=== PATIENT | male | born 1965 | race Caucasian/White ===

== ENCOUNTER → 2018-01-31 20:00 | Outpatient (CLI) | payer OTHER, SELFPAY | PROVIDERS: Family Provider Internal Medicine; PCP Internal Medicine; Visit Provider Clinical Nurse Specialist | DX: G47.10 Hypersomnia, unspecified (principal); R06.81 Apnea, not elsewhere classified; R06.83 Snoring | CPT/HCPCS: 95810 ==

== ENCOUNTER → 2018-03-10 23:38 | Outpatient (CLI) | payer OTHER, SELFPAY | PROVIDERS: Family Provider Internal Medicine; PCP Internal Medicine; Visit Provider Clinical Nurse Specialist | DX: G47.33 Obstructive sleep apnea (adult) (pediatric) (principal) | CPT/HCPCS: 95811 ==

== ENCOUNTER → 2019-01-09 08:06 | Outpatient (CLI) | payer OTHER, SELFPAY ==
[2018-07-13 08:41] VITALS: BMI 27.1
[2019-01-09 09:45] LABS: Vitamin B12 334 pg/mL (211-911); Vitamin D,25 Hydroxy 17.1 ng/mL (29.95-100.01)
[2019-01-09 09:49] LABS: Thyroid Stim Hormone (TSH) 1.88 uIU/mL (0.358-3.74)
== END ==
PROVIDERS: Family Provider Internal Medicine; PCP Internal Medicine
DX: E55.9 Vitamin D deficiency, unspecified (principal); E53.9 Vitamin B deficiency, unspecified; R53.82 Chronic fatigue, unspecified
CPT/HCPCS: 36415; 82306; 82607; 84443

== ENCOUNTER → 2019-03-18 16:57 | Outpatient (CLI) | payer OTHER, SELFPAY ==
[2019-01-16 07:13] VITALS: BMI 26.5
--- NOTE | 2019-03-18 17:15 | RAD_ITS ---
STUDY: X-RAY - LEFT KNEE REASON FOR EXAM: Male, 53 years old. Left knee pain TECHNIQUE: 2 view(s) of the knee. Weight-bearing COMPARISON: None. FINDINGS: Normal visualized distal femur. Normal visualized proximal tibia and fibula. Normal proximal tibiofibular articulation. Normal medial femorotibial compartment. Normal lateral femorotibial compartment. Normal patellofemoral articulation. The soft tissue structures are unremarkable. RAD/Knee 1 or 2 Views IMPRESSION: Normal x-ray examination of the knee. Electronically Signed: Andrew Allen DO at 14:30 EDT Tel , Service support ,
== END ==
PROVIDERS: Family Provider Internal Medicine; PCP Internal Medicine; Referring Provider Internal Medicine; Visit Provider Internal Medicine
DX: M71.22 Synovial cyst of popliteal space [Baker], left knee (principal)
CPT/HCPCS: 73560

== ENCOUNTER → 2019-09-21 07:39 | Outpatient (CLI) | payer OTHER, SELFPAY ==
[2019-04-08 07:09] VITALS: BMI 26.5
--- NOTE | 2019-09-21 07:40 | VDLE_ITS ---
Reason For Study: LLE calf pain RIGHT LEFT CFV is compressible, spontaneous, phasic, GSV is normal. competent and demonstrates normal CFV is compressible, spontaneous, phasic, augmentation. competent, and demonstrates normal Procedure augmentation. Exam performed in department. FV is compressible, spontaneous, phasic, The exam was diagnostic. competent and demonstrates normal A preliminary report was called and/or faxed augmentation. to Dr. Romulo Calvert @ 8:25 am @ POP V is compressible, spontaneous, phasic, . competent and demonstrates normal augmentation. T/P Trunk is compressible. PTV is compressible. LT PerV is compressible. Interpretation Summary There is no evidence of left lower extremity deep vein thrombosis. Left great saphenous vein appears patent and compressible segmentally. Normal flow patterns right common femoral vein Ordering Physician: Romulo Calvert Referring Physician: Romulo Calvert Performed By: Kayla Moy, TREVOR, RVT
== END ==
PROVIDERS: Family Provider Internal Medicine; PCP Internal Medicine; Referring Provider Internal Medicine; Visit Provider Internal Medicine
DX: M79.662 Pain in left lower leg (principal)
CPT/HCPCS: 93971

== ENCOUNTER 2019-11-25 16:00 | Outpatient (RCR) | payer OTHER, SELFPAY ==
[2019-10-12 15:35] VITALS: BMI 26.5
--- NOTE | 2019-10-22 16:54 | HP.PTEVAL_ITS ---
Patient's Visit Information FATOUMATA GÓMEZ is a 54 year old M referred to Physical Therapy by ZANDRA Lange with a diagnosis of Recurrent Calf Strain. Date of Evaluation: 10/22/19 Physical Therapist: Peggy Orr DPT - Visit Plan Frequency: 2x /Week Duration: 4 Weeks Plan: Focus on LE and core strength/stabilization- agility and sports specific- DN as modality - Subjective Findings: Competitive Tennis- insidious onset- happened in May- takes time off until he can't feel it anymore. then 1-3 weeks later it happens again- has happened 6-7x since the initial injury. Pain in the left side but is now kind in the left side. 16 days since the last time he re-injured it- has not played since. Normally takes 1-2 weeks depends on how it feels. Describes as sharp shooting- this time he was limping at work- but the last one was one of the worst times. Has had an ultrasound which was negative for blood clots. No x-ray or MRI. Pain is located in the calf- right below the bulb but it can be throughout the whole calf. Has had bruising on the inside of the foot. Has had swelling the calf. Worst: 7/10 Best: 0/10. Agg: playing tennis. Tennis shoes-in May- new type of shoe. Tennis 2-3x a week- both singles and doubles- no other exercise- does not really stretch. If he does stretch the pain bouts are longer. MD sent him to therapy- feels he needs some therapy then possible MRI. Does not plan to quit playing tennis. Sleep: not disturbed. 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 PMHx:none Meds: claratin, probiotic, Meloxicam - Objective Posture: FH, RS, can correct but does not maintain. Gait: no deviation noted. Observation: high arches bilaterally- under developed calf muscle. Hr/TR able without pain both eccentric and concentric. SLS: 30 sec with increased muscle activation and hip drop bilaterally. ROM: WFL in all planes of LE. Strength: Ankle: 5/5, Knee: Flex: 4/5, Extn: 4+/5, Hip: abd/flexion: 4/5, ER: 4-/5, IR: 4+/5, Core: fair minus. Flex: Hamstring: severe, Gastroc: severe, Soleus: moderate. Special Test: LLD: negative, Pelvis Alignment: WFL - Goals Goal 1:: Patient will be I with HEP and progression Goal Time Frame: 4-6 Weeks Goal 2:: Patient will not be tender to palpation in bilateral calf muscles Goal Time Frame: 4-6 Weeks Goal 3:: Patient will maintain proper posture t/o tx session to demo increased core s/s Goal Time Frame: 4-6 Weeks Goal 4:: Patient will report no pain for 1 week playing tennis Goal Time Frame: 4-6 Weeks - Rehabilitation Potential Physical Therapy Diagnosis: Patient presents with hypomobility- he has decreased strength, flex and muscular endurnace leading to recurreny cafl strains Rehabilitation Potential: Good - Anticipated Interventions Patient/Client Instruction: Educate patient on: Benefits of Fitness Program Therapeutic Exercise to Include: Strength training, Endurance training, Balance training, Agility training, Body mechanics, Postural training, Flexibilty train ing, Dynamic Lumbar Stabilization For the Purpose of:: To improve muscle performance and motor function Manual Therapy Techniques to Include: Functional dry needling TENS: Yes Cryotherapy (ice pack, ice massage): Yes Thermo therapy (hot pack): Yes Ultrasound (thermal/non thermal): Yes Thank you for the opportunity to evaluate your patient. For Medicare and Medicare HMO plans, please review the plan of care and approve it. It will need to be FAXED BACK to us at [phone] for Medicare purposes. For Medicare only, by signing this I certify the plan of care. Please let me know if there are questions or concerns regarding this plan of care. Physician Signature: Date:
--- NOTE | 2019-11-25 16:24 | HP.PTREVAL ---
ZANDRA Lange, It has been my pleasure to treat FATOUMATA GÓMEZ over the last 8 visits for Recurrent Calf Strain. Please see the progress note below for an update on the physical therapy plan of care! Subjective: Patient reports that he has been able to play double with no pain- but has not tried to do singles yet. Objective/Function: Posture: good in sitting Gait: no deviation noted. Observation: high arches bilaterally- under developed calf muscle. Hr/TR able without pain both eccentric and concentric. SLS: 30 sec with increased muscle activation. ROM: WFL in all planes of LE. Strength: Ankle: 5/5, Knee: Flex: 5/5, Extn: 5/5, Hip: abd/flexion: 4+/5, ER: 4+/5, IR: 5/5, Core: fair plus. Flex: Hamstring: severe, Gastroc: severe, Soleus: moderate. Special Test: LLD: negative, Pelvis Alignment: WFL Plan Plan: Hold-attempting to play singles Goals Goal 1:: Patient will be I with HEP and progression Goal Time Frame: 4-6 Weeks Goal Progress: Goal Met Goal 2:: Patient will not be tender to palpation in bilateral calf muscles Goal Time Frame: 4-6 Weeks Goal Progress: Goal Met Goal 3:: Patient will maintain proper posture t/o tx session to demo increased core s/s Goal Time Frame: 4-6 Weeks Goal Progress: Progressing Goal 4:: Patient will report no pain for 1 week playing tennis Goal Time Frame: 4-6 Weeks Goal Progress: Progressing Anticipated Interventions Patient/Client Instruction: Educate patient on: Benefits of Fitness Program Therapeutic Exercise to Include: Strength training, Endurance training, Balance training, Agility training, Body mechanics, Postural training, Flexibilty training, Dynamic Lumbar Stabilization For the Purpose of:: To improve muscle performance and motor function Manual Therapy Techniques to Include: Functional dry needling TENS: Yes Cryotherapy (ice pack, ice massage): Yes Thermo therapy (hot pack): Yes Ultrasound (thermal/non thermal): Yes Please do not hesitate to contact me at [phone] by phone or if you have questions or concerns regarding this new plan of care! Sincerely, Peggy Orr DPT
--- NOTE | 2020-03-01 10:28 | HP.PT.NRP ---
FATOUMATA GÓMEZ was seen in my office for initial evaluation on 10/22/19. The following Plan of Care was established for this patient: Initial Frequency: 2x /Week Initial Duration: 4 Weeks Patient/Client Instruction: Educate patient on: Benefits of Fitness Program Therapeutic Exercise to Include: Strength training, Endurance training, Balance training, Agility training, Body mechanics, Postural training, Flexibilty training, Dynamic Lumbar Stabilization For the Purpose of:: To improve muscle performance and motor function Manual Therapy Techniques to Include: Functional dry needling TENS: Yes Cryotherapy (ice pack, ice massage): Yes Thermo therapy (hot pack): Yes Ultrasound (thermal/non thermal): Yes This patient was last seen in our office . Pertinent comments regarding their Physical therapy will appear below: Patient has not attended physical therapy in over 8 weeks- appropriate for d/c and return to MD as appropriate. At this point I will be discontinuing this patient from physical therapy. I would be happy to see this patient again in the future if found appropriate by the physician. Thank you! Peggy Orr DPT
== END 2019-11-25 19:00 | disposition home or self-care (01) ==
LOC: PT 16:00
PROVIDERS: Family Provider Internal Medicine; PCP Internal Medicine; Referring Provider Physician Assistant; Visit Provider Physician Assistant
DX: S86.119D Strain of other muscle(s) and tendon(s) of posterior muscle group at lower leg level, unspecified leg, subsequent encounter (principal)
CPT/HCPCS: 97110; 97161; 97164; 97530

== ENCOUNTER 2020-07-24 09:07 | Emergency (ER) | payer OTHER, SELFPAY ==
[2019-10-12 15:35] VITALS: BMI 26.5
[2020-07-24 09:16] VITALS: BP 173/106; PULSE 81; RESP 16; TEMP 36.1; O2SAT 100; BMI 25.4
[2020-07-24 09:19] VITALS: BP 173/106; PULSE 81; RESP 16; TEMP 36.1; O2SAT 100
--- NOTE | 2020-07-24 09:25 | RAD_ITS ---
STUDY: X-RAY CHEST REASON FOR EXAM: Male, 54 years old. Shortness of breath, fever and diarrhea for 3 days. TECHNIQUE: Single AP portable view of the chest. COMPARISON: 07/01/2017 FINDINGS: The lungs are clear and expanded. There is no demonstrated pleural abnormality. Normal size heart. Normal mediastinum and alissa. Normal visualized pulmonary arteries. Normal visualized aortic arch and descending thoracic aorta. Normal visualized thoracic spine. Normal visualized ribs, clavicles, and shoulders. There is no demonstrated abnormality of the visualized soft tissue structures of the upper abdomen. RAD/Chest 1 View IMPRESSION: Normal x-ray examination of the chest. Electronically Signed: Preston Spencer MD at 10:19 EDT Tel , Service support ,
--- NOTE | 2020-07-24 09:26 | ED.VIS.GEN ---
History of Present Illness <Shaheen North - Last Filed: 07/24/20 10:05> Informant: Patient Onset: Days Narrative: 54-year-old male with past medical history of seasonal allergies presents with cough. He states he has had a dry cough x4 days. 3 days ago he had a fever of 100.4F, since then just low-grade fevers. He states he was still feeling well and played tennis the last few days. Last night he had around 8 episodes of nonbloody diarrhea but none since 0600 this AM. He is still eating and drinking normally. Denies chills, sore throat, myalgias, chest pain, shortness of breath, or abdominal pain. No known sick contacts. <Katey Nugent - Last Filed: 07/24/20 10:27> Chief Complaint: Cold Sx Past Medical History <Shaheen North - Last Filed: 07/24/20 10:05> Past Medical History: - - Seasonal allergies Smoking Status: Never smoker <Katey Nugent - Last Filed: 07/24/20 10:27> - Allergies and Home Meds Allergies/Adverse Reactions: Allergies hydrochlorothiazide Allergy (Verified 07/24/20 09:14) Hives triethanolamine [From Cerumenex] Allergy (Verified 07/24/20 09:14) Rash Primary Care Physician: Romulo Calvert MD [Primary Care Provider] - Review of Systems General: Reports: Fever. Denies: Chills, Sweats Eyes: Denies: Visual changes - bilaterally, Diplopia ENT: Reports: Rhinorrhea. Denies: Bilateral ear pain, Sore throat Cardiovascular: Denies: Chest pain, Palpitations Respiratory: Reports: Cough. Denies: Dyspnea, Dyspnea on exertion Gastrointestinal: Reports: Diarrhea. Denies: Abdominal pain, Nausea, Vomiting, Constipation, Melena, Hematochezia Genitourinary: Denies: Dysuria, Hematuria, Frequency Musculoskeletal: Denies: Back pain, Extremity Pain Skin: Denies: Rash, Wounds Neurological: Denies: Headache, Weakness, Numbness <Katey Nugent - Last Filed: 07/24/20 10:27> Physical Exam Vital Signs/Narrative: Vital Signs Temp Pulse Resp BP Pulse Ox 07/24/20 09:19 97 F L 81 16 173/106 H 100 07/24/20 09:16 97 F L 81 16 173/106 H 100 <Shaheen North - Last Filed: 07/24/20 10:05> Vital Signs/Narrative: Vital Signs Temp Pulse Resp BP Pulse Ox 07/24/20 09:19 97 F L 81 16 173/106 H 100 07/24/20 09:16 97 F L 81 16 173/106 H 100 General: Well nourished, Well developed, No Acute Distress Head: Normocephalic, Atraumatic Eyes: Perrl, EOMI ENT: Moist mucous membranes, No rhinorrhea Neck: Supple, Nontender Cardiovascular: Regular rate, Regular rhythm, No murmurs Respiratory: No distress, CTA bilaterally, Chest nontender Abdomen: Soft, Nontender, Nondistended, Normal bowel sounds Back: Nontender, Normal Inspection Extremities: Nontender, No edema Skin: Normal color, No rash Neurological: Alert, Oriented x3, Cranial nerves II-XII grossly intact Psychological: Normal affect, Normal Mood <Katey Nugent - Last Filed: 07/24/20 10:27> Diagnostic/Tx/Re-eval - Medical Decision Making I supervised the PA and have performed my own pertinent history and physical. Results and treatment plan were discussed. HPI: Patient reports that he has a cough that began 3 days ago. States that he has had a fever and chills. He denies any shortness of breath. He reports that overnight he developed diarrhea. He denies any known exposure to coronavirus. He does wear a mask. PE: Vitals: Stable. Afebrile. General: Well-nourished and well-developed. Head: Normocephalic atraumatic. Neck: Supple, no lymphadenopathy. No JVD. Nontender. Cardiovascular: Regular rate and rhythm. No murmurs. Respiratory: No respiratory distress. Clear to auscultation bilaterally. Abdominal: Soft, nontender, nondistended, normal bowel sounds. No guarding, rebound, or peritoneal signs. Back: Nontender. Extremities: Nontender, no edema. Skin: Normal color, no rash. Neurologic: Alert and oriented ?3. Cranial nerves II through XII are intact. Normal strength and sensation. Psych: Normal affect. Emergency Department course: Chest x-ray shows no infiltrate. A COVID-19 test was sent and is pending. Treatment Plan: Patient is instructed to quarantine as this may be COVID-19. Follow-up his primary care physician in 10 to 14 days if not improving. Return to the emergency department for any worsening symptoms. This note was generated with [employer] dictation software. It may contain incorrect words, spelling, and punctuation that were not noted in review of the chart prior to signing. <Shaheen North - Last Filed: 07/24/20 10:05> Clinical Impression(s) from Imaging Studies Chest X-Ray 07/24/20 09:25 IMPRESSION: Normal x-ray examination of the chest. Electronically Signed: Preston Spencer MD at 10:19 EDT Tel , Service support , - Medical Decision Making Patient presented with dry cough, history of fever, and diarrhea. He appears well nontoxic. Vital signs within normal limits. O2 sat 100% on room air. Lungs clear to auscultation and general medical exam otherwise unremarkable. Chest x-ray showed no acute findings. His symptoms are consistent with likely a viral illness discussed the possibility of COVID-19. COVID-19 test is pending and patient was advised to self quarantine. Symptomatic treatment at this time. Discussed return precautions including chest pain or shortness of breath. He was agreeable with this plan and discharged home in stable condition. <Katey Nugent - Last Filed: 07/24/20 10:27> ED Disposition <Shaheen North - Last Filed: 07/24/20 10:05> <Katey Nugent - Last Filed: 07/24/20 10:27> - Plan for ED Patient: Disposition: Home or Assisted Living Diagnosis: Suspected 2019 novel coronavirus infection, Viral syndrome Instructions: ED Viral Syndrome Referrals: Romulo Calvert MD [Primary Care Provider] -
== END 2020-07-24 10:26 | disposition home or self-care (01) ==
LOC: ED 10:17
PROVIDERS: Emergency Provider Physician Assistant; PCP Internal Medicine
DX: U07.1 COVID-19 (principal)
CPT/HCPCS: 71045; 87635; 99282; U0003

== ENCOUNTER 2020-11-01 17:00 | Outpatient (RCR) | payer OTHER, SELFPAY ==
--- NOTE | 2020-09-22 17:15 | HP.PTEVAL_ITS ---
Patient's Visit Information FATOUMATA GÓMEZ is a 55 year old M referred to Physical Therapy by Dr. Romulo Calvert MD with a diagnosis of Lateral and Medial Epicondyltis. Date of Evaluation: 09/22/20 Physical Therapist: Peggy Orr DPT - Visit Plan Frequency: 2x /Week Duration: 4 Weeks Plan: Ultrasound, Dry Needling, Manual and Eccentrics - Subjective Right elbow pain for over a year- played tennis a lot- its progressively gotten worse. Is taking Aug and September off of tennis and see how it goes. Right had dominate. Gotten worse over the last few months. Pain is located in the whole elbow on the medial and lateral side. Does not radiate. Does have occasional numbness in the fingers but very rarely. 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 Eases: nothing Best:0/10 Eases: bent elbow resting. No problems with finger dexterity but does have decreased area field manager strength. PMHx/Meds: scanned into chart. Goals: be painfree to be able to play tennis again and housework. 3-4x a week tennis. - Objective Posture: FH, RS- can correct but does not maintain. Gait: no deviation- good arm swing and trunk rotation. Palpation: not tender to touch in shoulder, elbow or cervical spine. ROM: Cervical, shoulder, elbow, wrist: WNL. Pain with full elbow extension with wrist extension. 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 Pinch- elbow flexon: 15, 15, 15 elbow extn: 10, 10, 10 - Goals Goal 1:: Patient will be I with HEP and progression Goal Time Frame: 4-6 Weeks Goal 2:: Patient will improve area field manager strength by 20 lbs of force with arm in extension without pain Goal Time Frame: 4-6 Weeks Goal 3:: Patient will return to all normal ADL's without pain Goal Time Frame: 4-6 Weeks - Rehabilitation Potential Physical Therapy Diagnosis: Patient presents with hypomobility- he has decreased strength and flex leading to increased pain with ADL's. Rehabilitation Potential: Good - Anticipated Interventions Patient/Client Instruction: Educate patient on: Benefits of Fitness Program Therapeutic Exercise to Include: Strength training, Endurance training, Coordination, Agility training, Body mechanics, Postural training, Flexibilty training, Passive ROM, Active ROM, Scapular Strength/Stabilization For the Purpose of:: To improve muscle performance and motor function Manual Therapy Techniques to Include: Mobilization, Functional dry needling, Soft tissue mobilization TENS: Yes Cryotherapy (ice pack, ice massage): Yes Thermo therapy (hot pack): Yes Ultrasound (thermal/non thermal): Yes Thank you for the opportunity to evaluate your patient. For Medicare and Medicare HMO plans, please review the plan of care and approve it. It will need to be FAXED BACK to us at [phone] for Medicare purposes. For Medicare only, by signing this I certify the plan of care. Please let me know if there are questions or concerns regarding this plan of care. Physician Signature: Date:
--- NOTE | 2020-10-19 16:57 | HP.PTREVAL ---
Dr. Romulo Calvert MD, It has been my pleasure to treat FATOUMATA GÓMEZ over the last 10 visits for Lateral and Medial Epicondyltis. Please see the progress note below for an update on the physical therapy plan of care! Subjective: Patient reports that he is doing really well he thinks its alot better. He feels that he is 85% back to normal Objective/Function: Posture: FH, RS- can correct but does not maintain. Gait: no deviation- good arm swing and trunk rotation. Palpation: not tender to touch in shoulder, elbow or cervical spine. ROM: Cervical, shoulder, elbow, wrist: WNL. Strength: Scap: fair plus, Shoulder: 4+/5, Elbow: 4+/5 no pain, Sustainability Consultant: Elbow flexion: 80,70, 75, Extn: 80,80, 75. 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 strength by 20 lbs of force with arm in extension without pain Goal Time Frame: 4-6 Weeks Goal 3:: Patient will return to all normal ADL's without pain Goal Time Frame: 4-6 Weeks Anticipated Interventions Patient/Client Instruction: Educate patient on: Benefits of Fitness Program Therapeutic Exercise to Include: Strength training, Endurance training, Coordination, Agility training, Body mechanics, Postural training, Flexibilty training, Passive ROM, Active ROM, Scapular Strength/Stabilization For the Purpose of:: To improve muscle performance and motor function Manual Therapy Techniques to Include: Mobilization, Functional dry needling, Soft tissue mobilization TENS: Yes Cryotherapy (ice pack, ice massage): Yes Thermo therapy (hot pack): Yes Ultrasound (thermal/non thermal): Yes Please do not hesitate to contact me at [phone] by phone or if you have questions or concerns regarding this new plan of care! Sincerely, Peggy Orr DPT
--- NOTE | 2020-11-23 13:16 | HP.PTDCNRP_ITS ---
FATOUMATA GÓMEZ was seen in my office for initial evaluation on 09/22/20. The following Plan of Care was established for this patient: Initial Frequency: 2x /Week Initial Duration: 4 Weeks Patient/Client Instruction: Educate patient on: Benefits of Fitness Program Therapeutic Exercise to Include: Strength training, Endurance training, Coordination, Agility training, Body mechanics, Postural training, Flexibilty training, Passive ROM, Active ROM, Scapular Strength/Stabilization For the Purpose of:: To improve muscle performance and motor function Manual Therapy Techniques to Include: Mobilization, Functional dry needling, Sof t tissue mobilization TENS: Yes Cryotherapy (ice pack, ice massage): Yes Thermo therapy (hot pack): Yes Ultrasound (thermal/non thermal): Yes This patient was last seen in our office . Pertinent comments regarding their Physical therapy will appear below: Discharge to I HEP At this point I will be discontinuing this patient from physical therapy. I would be happy to see this patient again in the future if found appropriate by the physician. Thank you! CHRISTOPHER AcostaT
== END 2020-11-01 19:00 | disposition home or self-care (01) ==
LOC: PT 17:00
PROVIDERS: PCP Internal Medicine; Visit Provider Internal Medicine
DX: M77.01 Medial epicondylitis, right elbow (principal); M77.11 Lateral epicondylitis, right elbow
CPT/HCPCS: 97035; 97110; 97140; 97161; 97164; 97530

== ENCOUNTER 2021-01-02 11:46 | Emergency (ER) | payer OTHER, SELFPAY ==
[2021-01-02 11:47] VITALS: BP 161/93; PULSE 64; RESP 15; TEMP 36.3; O2SAT 99; BMI 24.9
[2021-01-02 11:58] VITALS: BP 141/50; PULSE 60; RESP 22; O2SAT 97
--- NOTE | 2021-01-02 12:25 | CT_ITS ---
STUDY: CTA HEAD AND NECK WITH CONTRAST REASON FOR EXAM: Male, 55 years old. left facial tingling and left neck pain -- ?? left carotid pathology. Exam normal. RADIATION DOSAGE (If Supplied By Facility): CTDIvol = ( 30.51 ) mGy, DLP = ( 1510.06 ) mGycm TECHNIQUE: CT angiography was performed with a multi-detector CT scanner. Data acquisition was obtained from the skull base through the vertex following intravenous administration of IV 100mL [id number]-[id number]. MIP images were reconstructed from the axial data set. Post-processing of the angiographic images was performed, with multiplanar reformation and 3D reconstruction. Individualized dose optimization techniques were used for this CT. COMPARISON: No relevant priors. FINDINGS: Normal bilateral petrous carotid arteries. Normal right cavernous carotid artery with a normal supraclinoid bifurcation. Normal left cavernous carotid artery with a normal supraclinoid bifurcation. Normal right A1 segments of the anterior cerebral artery. Normal left A1 segments of the anterior cerebral artery. Normal intact anterior communicating artery (ACOM). Normal right M1 and M2 segments of the middle cerebral arteries, with a normal M1 bifurcation. Normal left M1 and M2 segments of the middle cerebral arteries, with a normal M1 bifurcation. Normal basilar artery with a normal basilar bifurcation. The visualized bilateral superior cerebellar (SCA) arteries are normal. Normal bilateral posterior cerebral arteries. STUDY: CT BRAIN WITHOUT CONTRAST There is no intracranial hemorrhage. There are no findings of an acute ischemic infarction. AORTIC ARCH: Normal visualized aortic arch. RIGHT CAROTID ARTERIES: Normal right common carotid artery (CCA). Normal right common carotid bulb. Normal origin of the right internal carotid (ICA) artery without a hemodynamically significant stenosis. There is tortuous elongation of the cervical portion of the right internal carotid artery. LEFT CAROTID ARTERIES: Normal left common carotid artery (CCA). Normal left common carotid bulb. Normal origin of the left internal carotid (ICA) artery without a hemodynamically significant stenosis. There is tortuous elongation of the cervical portion of the left internal carotid artery. VERTEBRAL ARTERIES: Normal bilateral vertebral arteries. CT/CTA Head AND Neck W/ Contrast IMPRESSION: Unremarkable CTA Head and neck with contrast. Electronically Signed: Carlos Saldaña MD at 14:07 EDT Tel , Service support ,
--- NOTE | 2021-01-02 12:25 | EKG12_ITS ---
Test Reason : NUMB/TING Blood Pressure : / mmHG Vent. Rate : 055 BPM Atrial Rate : 055 BPM P-R Int : 194 ms QRS Dur : 086 ms QT Int : 430 ms P-R-T Axes : 054 027 042 degrees QTc Int : 411 ms Sinus bradycardia Otherwise normal ECG Confirmed by IBRAHIMA ZAMARRIPA, JUAN FRANCISCO ([id number]), index editor PINEDA MACEDO ([id number]) on 01/04/2021 10:14:15 AM Referred By: ART Confirmed By:JUAN FRANCISCO ALEXANDRA MD
--- NOTE | 2021-01-02 12:27 | ED.VISSUMM ---
- ER Visit Summary Date of Service: 01/02/21 Chief Complaint: Left facial tingling and left lateral neck discomfort History of Present Illness: The patient is a 55 M no history of hypertension prior kidney stones. Patient states he had left lateral neck discomfort and started having some left facial tingling. No prior history. He thinks that he is fine and he may be over concerned about this. He denies any history of prior stroke or mini stroke. No cardiac disease. He denies any chest pain or shortness of breath. He denies any arm or leg weakness or numbness. No visual change. No change in his speech. He denies any recent injury or trauma of any type to his neck. No recent MVA. Physical Examination: Middle-aged male no acute distress initial blood pressure 141/50. He does not look septic or toxic. HEENT exam normal. No facial droop. Pupils round reactive light. Extra motions are intact. Normal speech. Neck nontender. No JVD. No lymphadenopathy. Lungs clear to auscultation bilaterally. Heart regular rhythm no murmur rate about 60. Abdomen soft nontender. Normal bowel sounds no peritoneal signs. Patient is moving all 4 extremities. Neurovascular intact. Equal symmetrical 5-5 quality assurance monitor final strength. Dorsi plantarflexion intact. Fingertip to nose within normal limits. Neurologic exam normal. NIH is 0. No facial droop. No facial weakness. Able to open close his eyes. Extraocular motions are intact. No decreased sensation in his face. Upper and lower extremities are neurovascular intact. Test Results: ETA of the head neck read by the radiologist is unremarkable. Reviewed by me. EKG sinus bradycardia rate of 55 no acute signs of MT, ischemia or dysrhythmia. CBC normal white count of 5. Hemoglobin 14. Chemistries unremarkable normal creatinine and gap. Repeat exam patient is doing well at 2:16 PM. Neurologic exam remains normal. NIH is 0. Normal speech. No facial droop. No facial numbness. Equal symmetrical quality assurance monitor final strength. Normal bilateral fingertip to nose. Dorsi plantarflexion intact. Patient I discussed all his test results. He is comfortable being discharged home. Emergency Department Course and Treatment: Middle-aged male with left facial tingling and left neck discomfort. He will be ruled out for a stroke or dissection if no clinically he has a normal exam. Treatment Plan: Primary care physician. Return if he is feeling worse. Disposition: Discharge Impression: Left neck pain with facial tingling of uncertain etiology both resolved This note was generated with [employer] dictation software. It may contain incorrect words, spelling, and punctuation that were not noted in review of the chart prior to signing ED Disposition - Plan for ED Patient: Referrals: Romulo Calvert MD [Primary Care Provider] -
[2021-01-02] MEDS: 0.9% Normal Saline 1,000 ML 999 ML IV (12:32)
[2021-01-02 13:07] LABS: Absolute Lymphocyte Count 1.66 X10^3/uL (0.83-4.51); Absolute Neutrophil Count 2.9 X10^3/uL (2.0-7.7); Basophil# 0.03 X10^3/uL; Basophil% 0.6 % (0-1); Eosinophil# 0.03 X10^3/uL; Eosinophils% 0.6 % (0-5); Hematocrit 45.3 % (40-54); Hemoglobin 14.5 g/dL (13.0-16.5); Lymphocyte # 1.66 X10^3/ul (4.0); Lymphocyte % 33.1 % (19-41); Mean Corpuscular Hgb 30.7 pg (27.0-32.0); Mean Platelet Vol. 9.6 fl (6.2-12.0); Monocyte# 0.36 X10^3/uL; Monocyte% 7.2 % (0-10); NRBC Flagged by Analyzer 0 % (0-5); Neutrophil # 2.93 X10^3/uL (2.7-7.7); Neutrophil % 58.3 % (47-70); Platelet Count 185 K/mm3 (150-450); RBC Distribution Width CV 12.6 % (11.6-14.6); RBC Distribution Width SD 45.1 fl (35.1-43.9); Red Blood Count 4.72 M/mm3 (4.6-6.2)
[2021-01-02 13:14] LABS: Anion Gap 4 (5-15); BUN 19 mg/dL (7-18); BUN/Creat Ratio 20.9 RATIO (10-20); Calcium,Total 8.8 mg/dL (8.5-10.1); Chloride 108 mmol/L (98-107); Creatinine, Serum 0.91 mg/dL (0.70-1.30); EST Glomerular Filtration Rate 92 mL/min (>60); Est Glom Filt Rate - Afr Amer 111 mL/min (>60); Estimated Creatinine Clearance 88.74 ml/min; Glucose 93 mg/dL (74-106); Potassium 3.8 mmol/L (3.5-5.1); Sodium Level 141 mmol/L (136-145)
--- NOTE | 2021-01-02 14:24 | ED.DEP ---
ED Disposition - Plan for ED Patient: Disposition: Home or Assisted Living Instructions: ED Paraesthesias Referrals: Romulo Calvert MD [Primary Care Provider] - 3-5 Days if not improving Additional Instructions: The CAT scan of your head neck today was normal. Your labs and EKG were unremarkable. Follow up with your doctor as needed. Return to the emergency department if you are feeling a lot worse.
[2021-01-02 14:50] VITALS: PULSE 71; RESP 18; O2SAT 99
--- NOTE | 2021-01-02 14:51 | ED.RN ---
THIS NURSE REVIEWED D/C INSTRUCTIONS WITH PT. PT VERBALIZED UNDERSTANDING OF INSTRUCTIONS. IV D/C. IV CATHETER INTACT. PT TOLERATED WELL. PT DENIES FURTHER NEEDS OR QUESTIONS AT THIS TIME. PT AMBULATES FROM ROOM ON OWN WITHOUT ASSISTANCE FROM STAFF
== END 2021-01-02 14:53 | disposition home or self-care (01) ==
PROVIDERS: Emergency Provider Emergency Medicine; PCP Internal Medicine
DX: M54.2 Cervicalgia (principal); R20.2 Paresthesia of skin
CPT/HCPCS: 70496; 70498; 80048; 85025; 93005; 96360; 96361; 99284; J7030; Q9967; A4216

== ENCOUNTER → 2021-01-06 10:53 | Outpatient (CLI) | payer OTHER, SELFPAY ==
[2021-01-02 11:47] VITALS: BMI 24.9
== END ==
PROVIDERS: PCP Internal Medicine; Referring Provider Internal Medicine; Visit Provider Internal Medicine
DX: Z11.4 Encounter for screening for human immunodeficiency virus [HIV] (principal)
CPT/HCPCS: 36415

== ENCOUNTER 2021-11-23 16:30 | Outpatient (RCR) | payer OTHER, SELFPAY ==
--- NOTE | 2021-11-09 17:57 | HP.PTEVAL_ITS ---
Patient's Visit Information FATOUMATA GÓMEZ is a 56 year old M referred to Physical Therapy by ZANDRA Lange with a diagnosis of L gastroc strain.. Date of Evaluation: 11/09/21 Physical Therapist: Savage Ruelas, HOLDEN, OCS, CSCS - Visit Plan Frequency: 2-3x /Week Duration: 2-4 Weeks Plan: 3x/week for 2-4 weeks for... 1. US thermal to R medial gastroc and DTR and stretching. 2. eccentric strength to gastrocs. 3. sports specific progression each session starting jogging, plyo, lateral movement and progress back to tennis as able. 4. Ensure proper warm ups for tennis prior to release back. - Subjective L gastroc strain. 6 weeks ago was palying tennis and took off on L foot and hurt right away and got worse and he was done. Hurt bad for 3 days medially at gastroc, it was bruised. Then he could walk but never got completely better. Has not got back to tennis. exacerbated it running up steps. Currently is not painful with normal activities. No pain in two weeks. Sleep is OK. 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 Main exercisse is tennis. - Pain L gastroc strain. medially Pain Intensity (Out of 10): 0 Pain Intensity Range: 0, 4 - Objective Walks normal, steps normal without antalgia or pain.Transfers normal. L medial gastroc tender inside proximally moderately. No other tenderness palpable. AROM ankles 3 degrees DF B, no pain, tight with OP B. Gastroc strength 4/5 B, able to heel raise on both single leg but weaker L, no pain. Full inv and eversion symmetrically and 4+/5 strength without pain B. DF 5/5 strength, PF full ROM. Knees ARMOM WFL and symmetrical and ext/flex strength 4/5. negative gastroc squeeze test. wears arch supports in shoes and has decent foot mechanics. - Balance/Special Test Scores Lower Extremity Functional Score: 56 - Goals Goal 1:: No tenderness in L gastroc and 5 degrees passive DF without pain or tightness. Goal Time Frame: 2-4 Weeks Goal 2:: Tolerate sports specific progression in clinic without pain Goal Time Frame: 2-4 Weeks Goal 3:: Pt ready to get back on tennis court without fear. Goal Time Frame: 4-6 Weeks - Rehabilitation Potential Physical Therapy Diagnosis: L gastroc strain causing tenderness and fear of getting back to tennis. Rehabilitation Potential: Good - Anticipated Interventions Patient/Client Instruction: Educate patient on: Condition, Plan of Care For the Purpose of:: To decrease pain, To improve muscle performance and motor function, To improve ability of physical actions for home/community/work/leisure Therapeutic Exercise to Include: Strength training, Flexibilty training, Gait and locomotor training For the Purpose of:: To decrease pain, To improve muscle performance and motor function, To increase tolerance to activity/condition/position, To improve ability of physical actions for home/community/work/leisure Manual Therapy Techniques to Include: Mobilization, Soft tissue mobilization For the Purpose of:: To decrease pain, To improve nutrient delivery to tissue, To increase tolerance to activity/condition/position Ultrasound (thermal/non thermal): Yes For the Purpose of:: To improve nutrient delivery to tissue Thank you for the opportunity to evaluate your patient. For Medicare and Medicare HMO plans, please review the plan of care and approve it. It will need to be FAXED BACK to us at [phone] for Medicare purposes. For Medicare only, by signing this I certify the plan of care. Please let me know if there are questions or concerns regarding this plan of care. Physician Signature: Date:
--- NOTE | 2021-11-23 16:48 | HP.PTDCSUM ---
It has been my pleasure to treat FATOUMATA GÓMEZ referred by ZANDRA Lange, with the diagnosis of L gastroc strain. for a total of 7 visit(s). Discharge Date: 11/23/21 Please see the following information for a summary of their discharge status. Subjective: No problems, feels great. Played one hour lastg night pretty hard singles and no problem. Feels ready to be on his own. L gastroc strain. medially Pain Intensity (Out of 10): 0 % Improvement: 100 Objective/Function: Patient on toes on ellitpical without pain, no tenderness with palpation in either gastroc. full aROM B DF and PF,. SL hop and toe walk without pain. carioca and sideshuffle and run without pain or compensation. Pt confident and doing well. Goal 1:: No tenderness in L gastroc and 5 degrees passive DF without pain or tightness. Goal Progress: Goal Met Goal 2:: Tolerate sports specific progression in clinic without pain Goal Progress: Goal Met Goal 3:: Pt ready to get back on tennis court without fear. Goal Progress: Goal Met Plan: d/c to HEP If there are questions or concerns regarding this patient's physical therapy, please feel free to call me at [phone]. Thank you for the referral of this patient. Sincerely, Savage Ruelas, DPT, OCS, CSCS Balance/Gait/Functional tests - Balance/Special Test Scores Lower Extremity Functional Score: 80
== END 2021-11-23 19:00 | disposition home or self-care (01) ==
LOC: PT 16:30
PROVIDERS: PCP Internal Medicine; Referring Provider Physician Assistant; Visit Provider Physician Assistant
DX: S86.812D Strain of other muscle(s) and tendon(s) at lower leg level, left leg, subsequent encounter (principal); X58.XXXD Exposure to other specified factors, subsequent encounter
CPT/HCPCS: 97035; 97110; 97161; 97164

== ENCOUNTER 2022-04-29 17:43 | Emergency (ER) | payer OTHER, SELFPAY ==
[2022-04-29 17:44] VITALS: BP 164/79; PULSE 69; RESP 16; TEMP 35.9; O2SAT 97; BMI 25.5
--- NOTE | 2022-04-29 17:58 | ED.VIS.LOWEX ---
HPI History of Present Illness Chief Complaint: Lower Extremity Injury Narrative Narrative: 56-year-old male presenting with right calf pain. He states he was playing tennis and it sound like he was decelerating with his right foot and felt a pop in his right calf. He states it feels similar to when he injured his gastrocnemius on the left. He did see physical therapy for his gastrocnemius tear on the left. Patient states he usually does not have any problem on the right. He denies any direct trauma. He is not having any bony tenderness. He states he has compression wraps at home that he can wear. He is on meloxicam. [facility] Medical History Hay fever History of skin cancer Home Medications loratadine 10 mg tablet 10 mg PO DAILY 03/11/15 [History Last Taken Unknown] lactobacillus combination no.9 4 billion cell capsule (Adult 50 Plus Probiotic) 4,000 mmu cells PO DAILY 01/16/19 [History Last Taken Unknown] amlodipine 2.5 mg tablet ea PO 11/08/21 [History Last Taken Unknown] ascorbic acid (vitamin C) 1,000 mg tablet 1 g PO Q6H 11/08/21 [History Last Taken Unknown] meloxicam 15 mg tablet 15 mg PO DAILY #30 tabs 11/08/21 [Rx Last Taken Unknown] multivitamin 1 tab PO DAILY 11/08/21 [History Last Taken Unknown] Allergy/AdvReac Type Severity Reaction Status Date / Time hydrochlorothiazide Allergy Hives Verified 04/29/22 17:44 triethanolamine Allergy Rash Verified 04/29/22 17:44 [From Cerumenex] Surgical History History of mandibular surgery Social History Smoking Status: Never smoker alcohol intake: never ROS ROS ED Constitutional Constitutional ED: Denies chills or fever(s) Eyes Eyes: Denies blurry vision or change in vision ENT ENT ED: Denies ear pain, rhinorrhea or sore throat Cardiovascular Cardiovascular: Denies chest pain or palpitations Respiratory/Chest Respiratory/Chest: Denies cough or dyspnea Gastrointestinal Gastrointestinal: Denies abdominal pain Genitourinary Genitourinary ED: Denies dysuria or hematuria Musculoskeletal Musculoskeletal: Reports other Details: Right calf pain Integumentary Denies abscess or Abrasions Neurologic Neurologic: Denies headache(s) or paresthesias Psychiatric Psychiatric: Denies anxiety or depression EXAM Physical Exam Const Vital Signs: 04/29/22 17:44 Temperature 96.6 F L Temperature Source Temporal Pulse Rate 69 Respiratory Rate 16 Blood Pressure 164/79 H Blood Pressure Mean 107 Pulse Ox 97 Oxygen Delivery Method Room Air Positive well nourished General Appearance ED: NAD HEENT Reports moist mucous membranes Resp normal respiratory effort and no retractions Cardio regular rate and regular rhythm Extremity Extremity Narrative: Tenderness to palpation right mid calf. No obvious swelling. Compartments are soft. Achilles tendon appears to be intact. Pain elicited with plantarflexion of the foot in the mid calf. Dorsiflexion does not cause pain. Neuro oriented x3 and CN's II-XII intact bilaterally Sensorium / Orientation: alert MDM MDM MDM Narrative Medical decision making narrative: Patient with likely muscle tear to the calf. Patient has had a history of this on the left. He has compression, crutches, NSAIDs at home. I recommended he follow-up with his manufacture specialist to ensure resolution. He is discharged home in stable condition. Impression: 1. Gastrocnemius tear right calf Lab Data Attestation: I reviewed the patient's lab results. Discharge Plan Triage Chief Complaint: Lower Extremity Injury ED Provider: Kadeem Miller Dx/Rx/DC Orders Instructions: Gastrocnemius Muscle Tear Prescriptions: No Action Adult 50 Plus Probiotic 4 billion cell capsule 4,000 mmu cells PO DAILY multivitamin Tablet 1 tab PO DAILY ascorbic acid (vitamin C) 1,000 mg tablet 1 g PO Q6H amlodipine 2.5 mg tablet PO meloxicam 15 mg tablet 15 mg PO DAILY Qty: 30 0RF loratadine 10 MG tablet 10 mg PO DAILY Primary Care Provider: Romulo Calvert Referrals: Romulo Calvert MD [Primary Care Provider] - Disposition Disposition: Home, Self Care
== END 2022-04-29 18:20 | disposition home or self-care (01) ==
LOC: ED 18:05
PROVIDERS: Emergency Provider Student in an Organized Health Care Education/Training Program; PCP Internal Medicine; Visit Provider Student in an Organized Health Care Education/Training Program
DX: S86.111A Strain of other muscle(s) and tendon(s) of posterior muscle group at lower leg level, right leg, initial encounter (principal); X50.9XXA Other and unspecified overexertion or strenuous movements or postures, initial encounter; Y93.73 Activity, racquet and hand sports
CPT/HCPCS: 99282

== ENCOUNTER 2022-06-15 15:30 | Outpatient (RCR) | payer OTHER, SELFPAY ==
--- NOTE | 2022-05-07 18:40 | HP.PTEVAL_ITS ---
Patient's Visit Information FATOUMATA GÓMEZ is a 56 year old M referred to Physical Therapy by ZANDRA Lange with a diagnosis of GASTROC STAIN VS PLANTAR FASCIA RUPTURE. Date of Evaluation: 05/07/22 Physical Therapist: Malick Daley, PT, Cert MDT, OCS - Visit Plan Frequency: 2x /Week Duration: 4 Weeks Plan: PT INTERVETIONS MANUAL THERAPY STM/STICK /FOAM ROLLING/HAWK ,MODALTIES, STRETCHING GS, STRENGTHNEING EX'S ANKLE ESPECAILLY ECCENTRICS GS ,PROPRIOCEPTION AND FUNCTIONAL STRENGTHNEING - Subjective This 56 y/o male presents to physical therapy with left calf stain. Patient injury to calf ~ 8 days ago playing tennis pushed off right calf caused immediate pain. Patient was unable to walk or WB on right leg ~ 36 hours ,then had heavy limp. Patient feeling some better continues to have pain very tender. Patient stated when PA there was no bruising he seen Seen PA recommended PT. Patient pain meloxicam. Patient has been ice/heat. Patient has h/o straining left calf . Patient denies paresthesia/tingling. Aggravating factors walking ,standing affects ADL's and housework tasks and unable to run or play Tennis . Patient sleeping okay. Patient goals to return to playing Tennis and no pain. 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 SOCIAL: Diverced - Pain Right Back Pain Intensity (Out of 10): 2 Pain Intensity Range: 10 - Objective POSTURE: pes planus. EDEMA: trimalleor joint 61.2. PALAPTION: tender mid muscle G-S. GAIT: mild antalgic gait right side. OBSERVATION: ecchymosis mod calf and posterior ankle. AROM: ankle DF 5 degrees from 0 ,plantarflexion 65 degrees ,inversion 40 degrees ,eversion 10 degrees ,pain with PF. MMT: 4/5 peroneus ,posterior tibias, dorsiflexion ,G-S 24.7 peak force. FLEXABILITY: GS MILD/MOD TIGHT. NICOLE TEST negative. PROPRIOCEPTION: POOR - Balance/Special Test Scores Lower Extremity Functional Score: 40 - Goals Goal 1:: I with HEP for calf Goal Time Frame: 4-6 Weeks Goal 2:: Normalize gait without pain Goal Time Frame: 4-6 Weeks Goal 3:: Patient to demonstrate 75% improvement with decrease pain and normalize gait and tennis Goal Time Frame: 4-6 Weeks Goal 4:: Patient increase peak force of GS by 15-20 to improve gait and function/tennis Goal Time Frame: 4-6 Weeks Goal 5:: Patient alyssa improve LFES score by 10 -15 points or > to improve QOL and function Goal Time Frame: 4-6 Weeks - Rehabilitation Potential Physical Therapy Diagnosis: Patient stain calf playing tennis~ 8days ago causing severe pain with weakness ,pain with gait, very tender ,decrease ROM then bruising and swelling this causes deficits with return to sport and general activity thus benefit from skilled PT Rehabilitation Potential: Good - Anticipated Interventions Patient/Client Instruction: Educate patient on: Condition, Plan of Care For the Purpose of:: To decrease pain, To increase ROM, To improve nutrient delivery to tissue, To increase oxygenation perfusion, To increase tolerance to activity/condition/position, To improve performance and independence with ADL's, To improve ability of physical actions for home/community/work/leisure, To improve health of tissue, To decrease soft tissue restriction, To increase flexibility/ROM, To improve safety Therapeutic Exercise to Include: Strength training, Endurance training, Balance training, Agility training, Active ROM Comment: ECCNTRICS G'S For the Purpose of:: To decrease pain, To increase ROM, To improve muscle performance and motor function, To improve ability to perform ADL's, To increase tolerance to activity/condition/position, To improve ability of physical actions for home/community/work/leisure, To improve gait and locomotor functions, To improve health of tissue, To decrease soft tissue restriction, To increase flexibility/ROM, To improve endurance, To improve balance, To prevent re-injury Manual Therapy Techniques to Include: Mobilization, Soft tissue mobilization Comment: SLAVA LEE HAWK For the Purpose of:: To decrease pain, To increase ROM, To improve nutrient delivery to tissue, To increase oxygenation perfusion, To improve health of tissue, To decrease soft tissue restriction TENS: Yes IF ES: Yes Cryotherapy (ice pack, ice massage): Yes Thermo therapy (hot pack): Yes Ultrasound (thermal/non thermal): Yes For the Purpose of:: To decrease pain, To increase ROM, To improve health of tissue, To decrease soft tissue restriction, To increase flexibility/ROM Thank you for the opportunity to evaluate your patient. For Medicare and Medicare HMO plans, please review the plan of care and approve it. It will need to be FAXED BACK to us at [phone] for Medicare purposes. For Medicare only, by signing this I certify the plan of care. Please let me know if there are questions or concerns regarding this plan of care. Physician Signature: Date:
--- NOTE | 2022-06-15 16:18 | HP.PTDCSUM ---
It has been my pleasure to treat FATOUMATA GÓMEZ referred by ZANDRA Lange, with the diagnosis of GASTROC STAIN VS PLANTAR FASCIA RUPTURE for a total of 11 visit(s). Discharge Date: 06/15/22 Please see the following information for a summary of their discharge status. Subjective: Doing well Return to tennis fully competitive Right Back Pain Intensity (Out of 10): 0 Right Lower Extremity Pain Intensity (Out of 10): 0 % Improvement: 100 Objective/Function: MMT: 5/5 ANKLE AND PEAK FORCE CALF 45. AROM: WNL. G-S : WFL. RUNNING/TENNIS NO PAIN Goal 1:: I with HEP for calf Goal Progress: Goal Met Goal 2:: Normalize gait without pain Goal Progress: Goal Met Goal 3:: Patient to demonstrate 75% improvement with decrease pain and normalize gait and tennis Goal Progress: Goal Met Goal 4:: Patient increase peak force of GS by 15-20 to improve gait and function/tennis Goal Progress: Goal Met Goal 5:: Patient alyssa improve LFES score by 10 -15 points or > to improve QOL and function Goal Progress: Goal Met Plan: D/C TO HEP AND RTS TENNIS Discharge Comments: RTS TENNIS If there are questions or concerns regarding this patient's physical therapy, please feel free to call me at [phone]. Thank you for the referral of this patient. Sincerely, Malick Daley, PT, Cert MDT, OCS Balance/Gait/Functional tests - Balance/Special Test Scores Lower Extremity Functional Score: 40
== END 2022-06-15 19:00 | disposition home or self-care (01) ==
LOC: PT 15:30
PROVIDERS: PCP Internal Medicine; Referring Provider Physician Assistant; Visit Provider Physician Assistant
DX: S86.912D Strain of unspecified muscle(s) and tendon(s) at lower leg level, left leg, subsequent encounter (principal)
CPT/HCPCS: 97014; 97035; 97110; 97140; 97162; G0283